=== PATIENT | male | born 1965 | race Caucasian/White ===

== ENCOUNTER 2022-07-16 08:30 | Day surgery (SDC) | payer BC, OTHER ==
[~2022-07-16 08:30] MED LIST: Lactated Ringers 1,000 ML IV SCH; Lidocaine 2% 5 ML SDV ONE; fentaNYL 100 MCG/2 ML SDV ONE; propofoL 50 ML ONE
[2022-07-16] MEDS ORDERED: ePHEDrine 50 MG/ML SDV ONE (09:57)
[2022-07-16] MEDS ORDERED: Propofol 200 MG/20 ML SDV ONE (09:58)
[2022-07-16] MEDS ORDERED: Lactated Ringers 1,000 ML IV SCH (10:30)
[2022-07-16 12:03] VITALS: BP 115/67; PULSE 65
== END 2022-07-16 11:10 | disposition home or self-care (01) ==
LOC: MW.SDS 08:30
PROVIDERS: ATTEND Surgery
DX: K21.00 Gastro-esophageal reflux disease with esophagitis, without bleeding (principal); K31.A0 Gastric intestinal metaplasia, unspecified; K29.50 Unspecified chronic gastritis without bleeding; K44.9 Diaphragmatic hernia without obstruction or gangrene; K31.89 Other diseases of stomach and duodenum; K57.30 Diverticulosis of large intestine without perforation or abscess without bleeding; K64.8 Other hemorrhoids; E66.9 Obesity, unspecified; Z68.38 Body mass index [BMI] 38.0-38.9, adult; Z87.19 Personal history of other diseases of the digestive system; Z79.899 Other long term (current) drug therapy; Z98.890 Other specified postprocedural states
CPT/HCPCS: 43239; 45378; J2704; J3010; J7120; J3490

== ENCOUNTER 2022-09-08 09:46 | Day surgery (SDC) | payer OTHER ==
[~2022-09-08 09:46] MED LIST changes: -Lidocaine 2% 5 ML SDV ONE; +ceFAZolin 2 GM in Sodium Chloride 0.9% 100 ML IV SCH; -fentaNYL 100 MCG/2 ML SDV ONE; -propofoL 50 ML ONE
[2022-09-08] MEDS ORDERED: Naloxone 0.4 MG/ML SDV IVPUSH PRN (10:59)
[2022-09-08] MEDS ORDERED: Metoclopramide 10 MG/2 ML SDV IVPUSH PRN (10:59)
[2022-09-08] MEDS ORDERED: Ondansetron 4 MG/2 ML SDV IVPUSH PRN (10:59)
[2022-09-08] MEDS ORDERED: fentaNYL 50 MCG/ML SDV IVPUSH PRN (10:59)
[2022-09-08] MEDS ORDERED: HYDROmorphone 1 MG/ML Syringe IVPUSH PRN (10:59)
[2022-09-08] MEDS ORDERED: Albuterol 0.083% 2.5 MG/3 ML Neb Soln NEB PRN (10:59)
[2022-09-08] MEDS ORDERED: Morphine 2 MG/ML SYRINGE IVPUSH PRN (10:59)
[2022-09-08] MEDS ORDERED: Ondansetron 4 MG/2 ML SDV ONE (12:17)
[2022-09-08] MEDS ORDERED: Dexamethasone 4 MG/ML 5 ML MDV ONE (12:17)
[2022-09-08] MEDS ORDERED: Propofol 200 MG/20 ML SDV ONE (12:17)
[2022-09-08] MEDS ORDERED: Lidocaine 2% 5 ML SDV ONE (12:17)
[2022-09-08] MEDS ORDERED: Ketorolac 30 MG/ML SDV ONE (12:17)
[2022-09-08] MEDS ORDERED: fentaNYL 100 MCG/2 ML SDV ONE (12:18)
[2022-09-08] MEDS ORDERED: Bupivacaine 0.25% 10 ML SDV ONE (12:32)
[2022-09-08] MEDS ORDERED: Water For Injection, Sterile 20 ML ONE (12:47)
[2022-09-08] MEDS ORDERED: ceFAZolin 1 GM Vial ONE (12:47)
[2022-09-08] MEDS ORDERED: ePHEDrine 50 MG/ML SDV ONE (12:59)
[2022-09-08 15:51] VITALS: BP 137/77; PULSE 59
== END 2022-09-08 14:20 | disposition home or self-care (01) ==
LOC: MW.SDS 09:46
PROVIDERS: ATTEND Orthopaedic Surgery
DX: G56.01 Carpal tunnel syndrome, right upper limb (principal); K21.9 Gastro-esophageal reflux disease without esophagitis; K57.30 Diverticulosis of large intestine without perforation or abscess without bleeding; E66.9 Obesity, unspecified; Z79.899 Other long term (current) drug therapy; Z98.890 Other specified postprocedural states
CPT/HCPCS: 64721; J0690; J1100; J1885; J2405; J2704; J3010; J3490; J7120

== ENCOUNTER 2024-09-28 09:15 | Day surgery (SDC) | payer OTHER ==
[2024-09-28] MEDS ORDERED: Propofol 200 MG/20 ML SDV ONE ×2 (09:27→11:09)
[2024-09-28] MEDS ORDERED: Lidocaine 2% 5 ML SDV ONE (09:29)
[2024-09-28] MEDS: Lactated Ringers 1,000 ML IV SCH (09:42)
[2024-09-28] MEDS ORDERED: Lactated Ringers 1,000 ML IV SCH (11:30)
[2024-09-28 12:06] VITALS: BP 128/72; PULSE 50
== END 2024-09-28 12:20 | disposition home or self-care (01) ==
LOC: MW.SDS 09:15
PROVIDERS: ATTEND Surgery
DX: K22.70 Barrett's esophagus without dysplasia (principal); K29.50 Unspecified chronic gastritis without bleeding; K44.9 Diaphragmatic hernia without obstruction or gangrene; K21.9 Gastro-esophageal reflux disease without esophagitis; E78.00 Pure hypercholesterolemia, unspecified; Z79.899 Other long term (current) drug therapy; Z88.8 Allergy status to other drugs, medicaments and biological substances
CPT/HCPCS: 43239; J2003; J2704; J7120; 00731